=== PATIENT | male | born 1995 | race Caucasian/White ===

== ENCOUNTER 2024-04-28 09:30 | Emergency (ER) | payer MEDICAID ==
[~2024-04-28] VITALS: Ht 172.7 cm; Wt 99.8 kg
[2024-04-28 09:39] VITALS: O2SAT 100
[2024-04-28] MEDS: KETOROLAC 30MG/ML VIAL IM ONE (10:31)
[2024-04-28] MEDS: ACETAMINOPHEN 325MG TABLET PO ONE (10:31)
[2024-04-28] MEDS ORDERED: NAPR220C61 MT (12:01)
[2024-04-28] MEDS ORDERED: ACET-2708 MT (12:01)
[2024-04-28 12:33] VITALS: BP 138/70; PULSE 77; RESP 20; TEMP 36.83628; O2SAT 100
== END 2024-04-28 13:08 | disposition home or self-care (01) ==
LOC: ER 09:30
DX: S89.91XA Unspecified injury of right lower leg, initial encounter (principal); G89.11 Acute pain due to trauma; I10 Essential (primary) hypertension
CPT/HCPCS: 99284; 29515; 73590; 73600; 73630; 96372; J1885